=== PATIENT | female | born 1975 | race Hispanic/Latino ===

== ENCOUNTER 2024-11-03 21:48 | Emergency (ER) | payer BC ==
[~2024-11-03] VITALS: Ht 162.6 cm; Wt 76.7 kg
[~2024-11-03 21:48] MED LIST: IOHEXOL-350 75 ML VIAL IV ONE; cefTRIAXone 1G VIAL IM ONE
--- NOTE | 2024-11-03 21:50 | NUR ---
COVID, FLU AND STREP SWABS COLLECTED AND SENT
[2024-11-03 22:10] LABS: APPEARANCE,URINE CLEAR (CLEAR); BILIRUBIN,URINE NEGATIVE (NEGATIVE); COLOR,URINE LIGHT-YELLOW (YELLOW); GLUCOSE, URINE (UA) 30 mg/dL (NEGATIVE); KETONES,URINE NEGATIVE (NEGATIVE); LEUKOCYTE ESTERASE ,URINE NEGATIVE Leu/uL (NEGATIVE); NITRATE,URINE NEGATIVE (NEGATIVE); OCCULT BLOOD,URINE MODERATE (NEGATIVE); PROTEIN,URINE 20 mg/dL (NEGATIVE); UROBILINOGEN,URINE 0.2 mg/dL (0.2-1.0)
--- NOTE | 2024-11-03 22:16 | NUR ---
PER DR ECHAVARRIA NO BCX TO BE COLLECTED AT THIS TIME.
[2024-11-03 22:19] LABS: RAPID GROUP A STREP negative (NEGATIVE)
--- NOTE | 2024-11-03 22:19 | ERN ---
General Chief Complaint: Sepsis Stated Complaint: FEVER, BODYACHES Time Seen by MD: 21:54 Source: patient History of Present Illness Initial Comments Patient is a 49-year-old female with a past medical history of hypertension who for the last 18 hours has noticed I dry cough, nonproductive, with fevers and chills + right flank pain. No change in urination no nausea no vomiting no diarrhea. No difficulty breathing no chest pain; however, patient does report chest tightness. Timing/Duration: 24 hours Severity: mild Allergies: Coded Allergies: No Known Allergies (Unverified Allergy, Unknown, 11/03/24) Home Meds Active Scripts Ciprofloxacin HCl (Cipro) 750 Mg Tab, 1 TAB PO BID for 10 Days, #20 TAB 0 Refills Prov:AJAY ECHAVARRIA MD 11/04/24 Past Medical History Past Medical History: No Pertinent History, Hypertension Past Surgical History: None Constitutional: (+) chills, (+) fever EENTM: (-) eye pain, (-) blurred vision, (-) tearing, (-) double vision, (-) ear pain, (-) ear discharge, (-) nose pain, (-) nose congestion, (-) throat pain, (-) Throat swelling, (-) mouth pain, (-) tooth pain, (-) mouth swelling, (-) other documentation Respiratory: (+) cough Cardiovascular: (-) chest pain, (-) edema, (-) palpitations, (-) syncope, (-) dyspnea on exertion, (-) other documentation Gastrointestinal/Abdominal: (-) nausea, (-) vomiting, (-) diarrhea, (-) abdomin al pain, (-) abdominal distention, (-) constipation, (-) rectal bleeding, (-) dark stool/melena, (-) other documentation Musculoskeletal: (-) Neck pain, (-) back pain, (-) Flank Pain, (-) joint pain, (-) joint swelling, (-) muscle pain, (-) muscle stiffness, (-) gout, (-) other documentation Neuro: (-) altered mental status, (-) headache, (-) syncope, (-) paralysis, (-) numbness, (-) seizure, (-) pre-existing deficit, (-) tremors, (-) weakness, (-) dizziness, (-) slurred speech, (-) vertigo, (-) other documentation Physical Exam General Appearance: (+) mild distress Orientation: (+) alert, (+) oriented x 3 Head/Face Trauma: No Eye: bilateral eye normal inspection, bilateral eye PERRL, bilateral eye EOMI Ear, Nose, Throat: (+) hearing grossly normal, (+) normal ENT inspection, (+) moist mucous membraine Neck: (+) normal inspection, (+) supple, (+) full range of motion Respiratory: (+) chest non-tender, (+) lungs clear, (+) well ventilated Respiratory Comment No wheezing no crackles Heart: (+) regular, (+) no gallop Vascular: (+) no edema, (+) no JVD Gastrointestinal: (+) non-tender, (+) no organomegaly, (+) bowel sound present Back: (+) normal inspection, (+) no CVA tenderness Extremities: (+) normal range of motion, (+) non-tender, (+) normal inspection Results Laboratory and Microbiology Lab and Micro Result Laboratory Tests Test 11/03/24 21:51 11/03/24 21:56 11/03/24 22:21 Influenza Type A Antigen Negative For Type A Influenza Type B Antigen Negative For Type B SARS-CoV-2, RNA, NAAT NEGATIVE SARS CoV-2 Group A Streptococcus Rapid negative (NEGATIVE) Urine Color LIGHT-YELLOW (YELLOW) Urine Appearance CLEAR (CLEAR) Urine pH 6.0 (5.0-8.0) Urine Specific [place] 1.012 (1.001-1.031) Urine Protein 20 mg/dL (NEGATIVE) H Urine Glucose (UA) 30 mg/dL (NEGATIVE) H Urine Ketones NEGATIVE mg/dL (NEGATIVE) Urine Occult Blood MODERATE (NEGATIVE) H Urine Nitrate NEGATIVE (NEGATIVE) Urine Bilirubin NEGATIVE mg/dL (NEGATIVE) Urine Urobilinogen 0.2 mg/dL (0.2-1.0) Urine Leukocyte Esterase NEGATIVE [place]/uL Urine RBC 11-25 /HPF (0-1) H Urine WBC 2-5 /HPF (0-1) H Urine Squamous Epithelial Cells FEW /HPF (0-2) Urine Bacteria None /HPF (None Seen) Urine HCG, Qualitative NEGATIVE (NEGATIVE) White Blood Count 18.5 K/uL (4.8-10.8) H Red Blood Count 4.36 MIL/uL (4.00-5.50) Hemoglobin 13.6 g/dL (12.0-16.0) Hematocrit 39.0 % (36-48) Mean Corpuscular Volume 89.4 fL (79-99) Mean Corpuscular Hemoglobin 31.2 pg (27.0-33.0) Mean Corpuscular Hemoglobin Concent 34.9 g/dL (32.0-36.0) Red Cell Distribution Width 14.1 % (11.0-15.5) Platelet Count 436 K/uL (130-400) H Mean Platelet Volume 9.2 fL (7.5-10.5) Immature Granulocyte % (Auto) 0.4 % (0-1) Neutrophils (%) (Auto) 84.5 % (40.0-77.0) H Lymphocytes (%) (Auto) 7.9 % (21.0-51.0) L Monocytes (%) (Auto) 6.7 % (3.0-13.0) Eosinophils (%) (Auto) 0.1 % (0.0-8.0) Basophils (%) (Auto) 0.4 % (0.0-5.0) Neutrophils # (Auto) 15.7 K/uL (1.8-7.7) H Lymphocytes # (Auto) 1.5 K/uL (1.0-4.8) Monocytes # (Auto) 1.3 K/uL (0.1-1.0) H Eosinophils # (Auto) 0.01 K/uL (0.00-0.70) Basophils # (Auto) 0.08 K/uL (0.00-0.20) Absolute Immature Granulocyte (auto 0.07 K/uL (0-1) Nucleated Red Blood Cells 0.0 % (0.0-0.19) White Cell Morphology Comment See comments Sodium Level 133 mmol/L (136-145) L Potassium Level 3.1 mmol/L (3.5-5.1) L Chloride Level 97 mmol/L (101-111) L Carbon Dioxide Level 24 mmol/L (21-32) Blood Urea Nitrogen 14 mg/dL (7-18) Creatinine 0.9 mg/dL (0.5-1.0) Glomerular Filtration Rate Calc 77 mL/min (>90) Random Glucose 138 mg/dL (70-105) H Lactic Acid Level 1.0 mmol/L (0.8-2.5) Total Calcium 8.7 mg/dL (8.5-10.1) Procalcitonin 0.07 ng/mL (0.05-0.5) MDM Patient is a sepsis alert from tachycardia and fever. It is not clear the source of her infection. Could be a upper respiratory tract infection or could be a kidney stone or UTI. Low suspicion for gastroenteritis based on her symptoms. We will start the sepsis workup. Patient's workup has shown WBCs equals 18 rest of the CBC is normal. Chemistry panel is normal and a procalcitonin was normal. Urine showed blood but patient's. Is not due until next week. I obtained a CT scan of her abdomen and pelvis with the and without contrast. CT scan showed no stones. However there is a mild perinephric stranding around the right kidney as well as a cyst. Patient may have early pyelonephritis. I discussed the situation with the patient. We will give her some IV antibiotics now and a prescription for Cipro for a week. She knows to come back if she has another fever increasing pain or painful urination. ED Course Orders Procedure Category Date Status Time Covid Rna Naat LAB 11/03/24 Complete 21:50 Influenza Type A & B, LAB 11/03/24 Complete Rapid 21:50 Rapid (Group A Strep) LAB 11/03/24 Complete 21:50 Urinalysis Profile LAB 11/03/24 Complete 21:59 ,Urine Test LAB 11/03/24 Complete 21:59 Basic Metabolic Panel LAB 11/03/24 Complete 22:13 Cbc With Differential LAB 11/03/24 Complete 22:13 Lactic Acid LAB 11/03/24 Complete 22:13 Procalcitonin LAB 11/03/24 Complete 22:13 Lactated Ringers PHA 11/03/24 Complete 1000ml (Lactated 22:13 Acetaminophen 325 Tab PHA 11/03/24 Complete (Tylenol 325mg Tab 22:30 Chest 1vw RAD 11/03/24 Taken 22:19 Ct Abdomen/Pelvis CT 11/03/24 Resulted W/Wo Contras 23:36 Iohexol (Omnipaque) PHA 11/04/24 Complete 00:06 Culture Urine MELVIN 11/04/24 Logged 00:43 Ceftriaxone 1g Vial PHA 11/04/24 Complete (Rocephine 1g Inj) 01:11 Current Medications Medications (Trade) Dose Ordered Sig/Jacquelin Route PRN Reason Start Time Stop Time Status Last Admin Dose Admin Acetaminophen (TYLenol 325MG TAB) 325 mg ONCE ONCE PO 11/03/24 22:30 11/03/24 22:31 DC 11/03/24 22:25 Ceftriaxone Sodium (ROCEphine 1G INJ) 1 gm ONCE STAT IVP 11/04/24 01:11 11/04/24 01:13 DC Iohexol (Omnipaque) 75 ml STK-MED ONCE IV 11/04/24 00:06 11/04/24 00:08 DC Lactated Ringer's (Lactated Ringers 1000ml) 1,000 ml BOLUS STAT IV 11/03/24 22:13 11/03/24 22:17 DC 11/03/24 22:25 Vital Signs Date Time Temp Pulse Resp B/P (MAP) Pulse Ox O2 Delivery O2 Flow Rate FiO2 11/03/24 23:51 99.7 108 17 124/72 98 Room Air* 0 21 11/03/24 22:51 100.2 124 20 132/72 99 Room Air* 0 21 11/03/24 22:26 129 18 126/68 97 Room Air* 0 21 11/03/24 22:25 100.4 11/03/24 22:11 100.4 136 18 134/75 98 Room Air* 0 21 11/03/24 21:49 101.3 132 20 136/84 99 Room Air DX & DISP Disposition: Discharge Departure Impression: Primary Impression: Nephritis Condition: Stable Scripts Ciprofloxacin HCl (Cipro) 750 Mg Tab 1 TAB PO BID for 10 Days, #20 TAB 0 Refills Prov: AJAY ECHAVARRIA MD 11/04/24 Referrals: SELF,REFERRAL (PCP) AJAY ECHAVARRIA MD November 03, 2024 22:18
[2024-11-03 22:23] LABS: SARS-CoV-2, RNA, NAAT NEGATIVE SARS CoV-2 (NEGATIVE)
[2024-11-03 22:25] VITALS: TEMP 100.4
[2024-11-03] MEDS: acetaMINOPHEN 325 MG TAB PO ONE (22:25)
[2024-11-03] MEDS: LACTATED RINGERS 1000ML IV STA (22:25)
[2024-11-03 22:28] LABS: ADD UA MICROSCOPIC YES
[2024-11-03 22:28] LABS: BASOPHILS # (AUTO) 0.08 K/uL (0.00-0.20); BASOPHILS % (AUTO) 0.4 % (0.0-5.0); EOSINOPHILS # (AUTO) 0.01 K/uL (0.00-0.70); EOSINOPHILS % (AUTO) 0.1 % (0.0-8.0); IMMATURE GRANULOCYTE ABSOLUTE 0.07 K/uL (0-1); LYMPHOCYTES # (AUTO) 1.5 K/uL (1.0-4.8); LYMPHOCYTES % (AUTO) 7.9 % (21.0-51.0); MEAN CORPUSCULAR HEMOGLOBIN 31.2 pg (27.0-33.0); MEAN CORPUSCULAR HGB CONC 34.9 g/dL (32.0-36.0); MEAN CORPUSCULAR VOLUME 89.4 fL (79-99); MONOCYTES # (AUTO) 1.3 K/uL (0.1-1.0); MONOCYTES % (AUTO) 6.7 % (3.0-13.0); NEUTROPHILS # (AUTO) 15.7 K/uL (1.8-7.7); NEUTROPHILS % (AUTO) 84.5 % (40.0-77.0); PLATELET COUNT (AUTO) 436 K/uL (130-400); RED BLOOD CELL COUNT(AUTO) 4.36 MIL/uL (4.00-5.50); RED CELL DISTRIBUTION WIDTH 14.1 % (11.0-15.5); WHITE BLOOD COUNT (AUTO) 18.5 K/uL (4.8-10.8)
[2024-11-03 22:29] LABS: INFLUENZA TYPE A Negative For Type A (NEGATIVE); INFLUENZA TYPE B Negative For Type B (NEGATIVE)
[2024-11-03 22:40] LABS: CREATININE 0.9 mg/dL (0.5-1.0); POTASSIUM 3.1 mmol/L (3.5-5.1)
[2024-11-03 22:46] LABS: SQUAMOUS EPITHELIAL CELL,UR FEW /HPF (0-2)
[2024-11-04] MEDS ORDERED: IOHEXOL-350 75 ML VIAL IV ONE (00:06)
--- NOTE | 2024-11-04 00:32 | HMCIMG ---
CT ABDOMEN/PELVIS W/WO CONTRAS HISTORY: COMPARISON: None TECHNIQUE: Multiple sequential axial images of the abdomen and pelvis were obtained from the dome of the diaphragm through symphysis pubis. Patient was given 75 cc of Omnipaque through intravenous route. Oral contrast was not given. FINDINGS: No pleural effusion is seen bilaterally. There is no evidence of parenchymal disease or pulmonary nodule of the visualized lower lungs. Degenerative changes of the thoracolumbar spine are present. The heart is not enlarged. The liver, spleen, adrenal glands and pancreas are unremarkable. There is no evidence of hydronephrosis bilaterally. Mild right perinephric fat stranding is seen. If there is clinical suspicion for pyelonephritis, urinalysis correlation may be helpful. No evidence of renal stone is seen. Fecal material is seen in the colon. There are normal size retroperitoneal and mesenteric lymph nodes. No ascites is seen. Appendix is not well seen and attenuation. Pelvic sidewalls are symmetric bilaterally. Bladder is well distended without wall thickening. IMPRESSION: 1. Mild right perinephric fat stranding is seen. If there is clinical suspicion for pyelonephritis, urinalysis correlation may be helpful. No ascites is seen. CT was performed with one or more following dose reduction techniques: automated exposure control, adjustment of the mA and kv according to patient's size, or use of a iterative reconstruction technique.
[2024-11-04] MEDS ORDERED: CIPR750T90 PO (01:13)
[2024-11-04] MEDS: cefTRIAXone 1G VIAL IVP STA (01:25)
[2024-11-04 02:04] VITALS: BP 118/68; PULSE 98; RESP 18; TEMP 98.9; O2SAT 97
--- NOTE | 2024-11-04 09:10 | HMCIMG ---
Exam Type: CHEST 1VW Clinical Information: fever, chest tightness Comparison: None Findings: The lungs are clear of infiltrates. The heart is normal in size. The bony and soft tissue structures of the chest are unremarkable. Impression: Clear lungs.
== END 2024-11-04 02:08 | disposition home or self-care (01) ==
LOC: EDH 21:48
DX: N05.9 Unspecified nephritic syndrome with unspecified morphologic changes (principal); I10 Essential (primary) hypertension; Z79.899 Other long term (current) drug therapy; Z20.822 Contact with and (suspected) exposure to COVID-19
CPT/HCPCS: 99284; 74178; 96374; 71045; 87635; 80048; 85025; 87086; 87880; 87804 ×2; 83605; 81001; 81025; 36415; 84145; J7120; J0696; Q9967